=== PATIENT | female | born 1980 | race African-American/Black ===

== ENCOUNTER 2020-01-13 01:35 | Emergency (ER) | payer MEDICAID, OTHER ==
[~2020-01-13] VITALS: Ht 170.2 cm; Wt 83.2 kg
[2020-01-13 03:25] VITALS: BP 130/85
== END 2020-01-13 03:40 | disposition home or self-care (01) ==
LOC: ER 01:35
DX: R44.0 Auditory hallucinations (principal); F32.9 Major depressive disorder, single episode, unspecified
CPT/HCPCS: 99281; 99283

== ENCOUNTER 2020-02-20 16:24 | Emergency (ER) | payer MEDICAID ==
[~2020-02-20] VITALS: Ht 170.2 cm; Wt 84.0 kg
[2020-02-20] MEDS ORDERED: ARIP2TAB3 PO (16:37)
[2020-02-20] MEDS ORDERED: SERT20OR PO (16:38)
[2020-02-20] MEDS ORDERED: IBUPROFEN 600MG TABLET PO ONE (17:15)
[2020-02-20 18:08] VITALS: BP 111/80
== END 2020-02-20 18:09 | disposition home or self-care (01) ==
LOC: ER 16:24
DX: M25.512 Pain in left shoulder (principal)
CPT/HCPCS: 73030; 81025; 99283

== ENCOUNTER 2020-04-17 01:11 | Emergency (ER) | payer OTHER, MEDICAID ==
[~2020-04-17] VITALS: Ht 170.2 cm; Wt 91.0 kg
[~2020-04-17 01:11] MED LIST: ARIP2TAB3 PO; SERT20OR PO
[2020-04-17 03:41] VITALS: BP 135/83
== END 2020-04-17 03:50 | disposition home or self-care (01) ==
LOC: ER 01:11
DX: R10.2 Pelvic and perineal pain (principal)
CPT/HCPCS: 36415; 81025; 84702; 93005; 99284